=== PATIENT | female | born 1990 | race Caucasian/White ===

== ENCOUNTER 2016-11-05 08:24 | Inpatient (IN) | payer OTHER ==
[~2016-11-05] VITALS: Ht 157.5 cm; Wt 73.1 kg
[2016-11-05 08:38] VITALS: BP 118/75; PULSE 78; RESP 20; Ht 157.5 cm; Wt 73.1 kg
[2016-11-05] MEDS ORDERED: LACTATED RINGER'S 1,000 ML IV SCH (08:42)
[2016-11-05] MEDS ORDERED: PREN1TAB79 PO (08:42)
--- NOTE | 2016-11-05 08:59 | TRIAGE ---
OB Triage Datetime Report Generated by CPN: 11/05/2016 08:58 Datetime: 11/05/2016 08:55 Time of Arrival: 11/05/2016 08:20 EGA: 38.5 Arrived By: Ambulatory Arrived From: Home Chief Complaint: SROM AT 0700 UCS SINCE 0700 Movement: Present Contractions: Regular Contractions: Q 2-3 Patient Complaints: Contractions; Other Time Provider Notified: 11/05/2016 08:56 Provider Notified: DR PRIEST Initial Plan: EFM,CALL DR PRIEST Datetime: 11/05/2016 08:50 Maternal Assessment Level of Consciousness: Fully Conscious DTR's/Clonus: DTRs 2+; No Clonus Headache: Denies Blurred Vision: No Respiratory Effort: Unlabored; Regular Rhythm; Equal Expansion Breath Sounds, Left: Clear and Equal Breath Sounds, Right: Clear and Equal Nausea/Vomiting: Denies RUQ Epigastric Pain: Denies Facial Edema: None Temperature Route: Axillary Fall Risk Assessment History of Falling: (0) No Secondary Diagnosis: (0) No Ambulatory Aid: (0) Bedrest/Nurse Assist IV Therapy: (0) No Gait: (0) Normal/Bedrest/Immobile Mental Status: (0) Oriented to Own Ability Fall Score: 0 Fall Risk Score Definition: No Risk: No action required
[2016-11-05] MEDS ORDERED: OXYTOCIN 30 UNITS/LR 500 ML IV SCH ×6 (09:00→19:30)
[2016-11-05] MEDS ORDERED: BUTORPHANOL 2 MG INJ IV PRN ×2 (09:00→10:00)
[2016-11-05] MEDS ORDERED: CARBOPROST 250 MCG INJ IM PRN ×2 (09:00→10:00)
[2016-11-05] MEDS ORDERED: OXYTOCIN 30 UNITS/LR 500 ML IV PRN ×2 (09:00→10:00)
[2016-11-05] MEDS ORDERED: MISOPROSTOL 200 MCG TAB PR PRN ×2 (09:00→10:00)
[2016-11-05] MEDS ORDERED: IBUPROFEN 600 MG TAB PO PRN ×2 (09:00→10:00)
[2016-11-05] MEDS ORDERED: LIDOCAINE 1% (MPF) 30 ML INJ INJ PRN ×2 (09:00→10:00)
[2016-11-05] MEDS ORDERED: METHYLERGONOVINE 0.2 MG INJ IM PRN ×2 (09:00→10:00)
[2016-11-05] MEDS ORDERED: AMPICILLIN 2 GM/NS (PMX) 100 ML IV ONE (09:00)
--- NOTE | 2016-11-05 09:58 | RADRPT ---
PROCEDURE: US OB. CLINICAL INDICATION: Size and dates TECHNIQUE: Multiple sonographic images of the pelvis and gravid uterus were obtained. The images were reviewed on a PACS workstation. COMPARISON: No prior studies are available for comparison. FINDINGS: There is a single viable intrauterine gestation. Cardiac activity is present with 148 beats per min samara. There is a vertex presentation. The placenta is posterior. There is no evidence for an abruption or placenta previa. Measurements were made in order to determine age. The results are as follows: BPD =9.1 cm HC =33.6 cm AC =34.8 cm FL =7.2 cm Estimated gestational age of approximately 37 weeks and 5 days based on ultrasound measurements. Clinical age: 38 weeks and 5 days. The estimated date of delivery is 11/21/16, based on ultrasound measurements. The EFW = 3371 g, 49.2%, based on LMP age. RPTAT: AA IMPRESSION: Single viable intrauterine gestation of approximately 37 weeks and 5 days based on ultrasound measu rements. .Leeroy Parsons MD, Date Time Electronically viewed and signed by .Leeroy Parsons MD, on 11/05/2016 09:58 .S/
[2016-11-05] MEDS ORDERED: LACTATED RINGER'S 1,000 ML IV PRN ×2 (10:00)
[2016-11-05 10:01] LABS: ADD SCAN DIFF NO
[2016-11-05 10:20] LABS: INR 0.84; PROTIME 11.5 Sec (12.2-14.2); PT RATIO 0.9
[2016-11-05 10:21] LABS: PARTIAL THROMBOPLASTIN TIME 26.5 Sec (25.0-35.0)
[2016-11-05 10:23] LABS: BASOPHILS % 0.3 % (0.0-2.0); EOSINOPHILS # 0.1 10^3/ul (0.0-0.5); EOSINOPHILS % 0.6 % (0.0-7.0); HEMATOCRIT 38.8 % (37.0-47.0); HEMOGLOBIN 13.2 g/dl (12.0-16.0); LYMPHOCYTES # 1.6 10^3/ul (0.8-2.9); LYMPHOCYTES % 11.6 % (15.0-51.0); MEAN CORPUSCULAR HEMOGLOBIN 29.7 pg (29.0-33.0); MEAN CORPUSCULAR VOLUME 87.4 fl (82.0-101.0); MEAN PLATELET VOLUME 11.9 fl (7.4-10.4); MONOCYTE # 0.9 10^3/ul (0.3-0.9); MONOCYTES % 6.8 % (0.0-11.0); NEUTROPHIL # 10.7 10^3/ul (1.6-7.5); NEUTROPHILS % 79.5 % (39.0-77.0); PLATELET COUNT 195 10^3/UL (140-415); RED BLOOD COUNT 4.44 10^6/ul (4.20-5.40); RED CELL DISTRIBUTION WIDTH 13.2 % (11.5-14.5); WHITE BLOOD COUNT 13.5 10^3/ul (4.8-10.8)
[2016-11-05] MEDS ORDERED: LACTATED RINGER'S 1,000 ML IV ONE (10:36)
[2016-11-05] MEDS ORDERED: CITRIC ACID/NA CITRATE 30 ML CUP ONE ×2 (10:41→23:10)
[2016-11-05] MEDS ORDERED: ONDANSETRON 4 MG INJ ONE (10:41)
[2016-11-05] MEDS ORDERED: FENTAnyl 2MCG/ML-ROPIV 0.2% 100 ML ONE (10:43)
[2016-11-05] MEDS: LACTATED RINGER'S 1,000 ML IV SCH ×3 (10:48→19:11)
[2016-11-05] MEDS ORDERED: KETOROLAC 30 MG INJ IV PRN (11:00)
[2016-11-05] MEDS ORDERED: NALOXONE (0.4 MG/ML) INJ IV PRN (11:00)
[2016-11-05] MEDS ORDERED: ONDANSETRON 4 MG INJ IV PRN (11:00)
[2016-11-05] MEDS ORDERED: CITRIC ACID/NA CITRATE 30 ML CUP PO ONE (11:00)
[2016-11-05] MEDS ORDERED: DIPHENHYDRAMINE 50 MG INJ IV PRN (11:00)
[2016-11-05] MEDS ORDERED: PROCHLORPERAZINE 10 MG INJ IV PRN (11:00)
[2016-11-05] MEDS ORDERED: FENTAnyl 2MCG/ML-ROPIV 0.2% 100 ML BAG EPI SCH (11:00)
[2016-11-05] MEDS ORDERED: morphine 2 MG INJ IV PRN ×2 (11:00)
[2016-11-05] MEDS ORDERED: ONDANSETRON 4 MG INJ IV ONE (11:00)
[2016-11-05] MEDS ORDERED: AMPICILLIN 1 GM/NS (PMX) 50 ML IV SCH (13:00)
[2016-11-05] MEDS ORDERED: CEFAZOLIN 2 GM/50 ML (PMX) 50 ML IVPB ONE (17:00)
[2016-11-05] MEDS ORDERED: ACETAMINOPHEN 500 MG TAB PO STA (19:19)
--- NOTE | 2016-11-06 01:11 | HP ---
Date/Time of Note Date/Time of Note DATE: 11/06/16 TIME: 00:58 OB - History Hx of Present Free Text/Dictation Pre-operative H&P Pt is a 26yo G1 at 38+6 admitted on 11/05/16 in early labor. Pt progressed to c/+ 1 without augmentation. However when pt reached second stage of labor she had a fever and was treated for chorioamnionitis. tachycardia initially responded to intrauterine resuscitation, a dose of antibiotics and Tylenol. Pt pushed x3 hours with Pitocin augmentation, good pushing effort and poor descent. PROCEDURE: US OB. CLINICAL INDICATION: Size and dates TECHNIQUE: Multiple sonographic images of the pelvis and gravid uterus were obtained. The images were reviewed on a PACS workstation. COMPARISON: No prior studies are available for comparison. FINDINGS: There is a single viable intrauterine gestation. Cardiac activity is present with 148 beats per minute. There is a vertex presentation. The placenta is posterior. There is no evidence for an abruption or placenta previa. Measurements were made in order to determine age. The results are as follows: BPD = 9.1 cm HC = 33.6 cm AC = 34.8 cm FL = 7.2 cm Estimated gestational age of approximately 37 weeks and 5 days based on ultrasound measurements. Clinical age: 38 weeks and 5 days. The estimated date of delivery is 11/21/16, based on ultrasound measurements. The EFW = 3371 g, 49.2%, based on LMP age. RPTAT: AA IMPRESSION: Single viable intrauterine gestation of approximately 37 weeks and 5 days based on ultrasound measurements. Past Family/Social History * Past Medical, Surgical, Family and Obstetric Histories reviewed from chart. Blood Type: O+ Rubella: immune RPR/VDRL: Negative GBS Status: Negative HBsAG: Negative OB Admission Exam Vital Signs Vital Signs Vital Signs Date Time Temp Pulse Resp B/P Pulse Ox O2 Delivery O2 Flow Rate FiO2 11/05/16 08:38 97.8 78 20 118/75 Room Air FHT 170s, mod sharon, +accels, nonrepetitive variable decels, few late decels which resolved [place]: q2-3 min UCs on Pitocin Physical Exam Cervical Dilatation: 10cm Effacement: 100% Last 72 hours Lab Results CBC & BMP 11/05/16 09:55 OB Assessment/Plan Other Assessment: IUP at 38+6wks GA Arrest of Descent Other plan: Recommend section for delivery given prolonged tachycardia in the setting of poor descent of head. The risks of C/S were discussed with the pt through a theater set production designer and include but are not limited to pain, infection, damage to nearby organs, structures or injury to baby, bleeding possibly requiring transfusion of blood products and abnormal placentation in future pregnancies. Risks of transfusion including infection and transfusion reaction were discussed as well. Pt counseled on possibility of needing a repeat surgery to repair damage done at the time of C/S and not recognized. Written consent obtained for section and transfusion of blood products. RIKY LARA MD Nov 06, 2016 01:08
[2016-11-06] MEDS ORDERED: CHLOROPROCAINE 3% (MPF) 20 ML INJ ONE (01:14)
[2016-11-06] MEDS ORDERED: FENTAnyl 50 MCG/ML VIAL ONE (01:27)
[2016-11-06] MEDS ORDERED: morphine SULFATE/PF (10 MG/10 ML) INJ ONE (01:27)
[2016-11-06] MEDS ORDERED: BUPIVACAINE 0.25% (MPF) 30 ML INJ ONE (01:33)
[2016-11-06] MEDS ORDERED: METOCLOPRAMIDE 10 MG INJ ONE (01:40)
[2016-11-06] MEDS ORDERED: MEPERIDINE 100 MG INJ ONE (02:00)
[2016-11-06] MEDS ORDERED: NALOXONE (0.4 MG/ML) INJ IV PRN ×2 (03:00→13:30)
--- NOTE | 2016-11-06 03:04 | OPR ---
Operative Report Planned Procedure Procedure date Nov 06, 2016 Procedure(s) Primary Low Transverse Section via Pfannenstiel Incision Performed by: RIKY LARA MD Assisting provider: LILIBETH REYNOLDS M.D. Anesthesiologist: BRANDI MCCRAY MD Pre-procedure diagnosis 1) Intrauterine at 38+6wks GA 2) Arrest of Descent 3) Tachycardia Anesthesia Type: epidural Procedure Description Under satisfactory anesthesia, the patient was prepped and draped in the normal sterile fashion and placed in a supine position, tilted to the left. A Pfannenstiel incision was made with a scalpel and the incision was carried down through the underlying subcutaneous tissue sharply. Bleeders were controlled with electrocautery. The fascia was incised on both sides of the midline and extended laterally in a blunt fashion with blunt dissection off of the underlying rectus muscles. The rectus muscles were divided midline. The peritoneum was then exposed and entered bluntly. Exploration of abdomen revealed a gravid uterus and good visualization of the bladder. A transverse incision was made in the lower segment of the uterus using a scalpel. The uterus was entered bluntly and the incision was bluntly extended in a cephalad caudad fashion. The head was brought to the level of the hysterotomy and delivered with fundal pressure, followed by delivery of the shoulders and remainder of the body. Nasal oropharyngeal suction was performed. The cord was milked, doubly clamped and cut and the baby was taken to the baby warmer for immediate assessment by RT. Cord blood was obtained. The placenta was delivered manually intact. The uterine cavity was cleaned with two wet sponges. The uterus was closed in 2 layers using 0-Vicryl in continuous fashion first and secondly for an imbricating layer. The peritoneal cavity was irrigated with warm saline and hemostasis was noted. The uterus was returned to the abdomen. Sponge, needle and instrument count reported to be correct. The gutters were cleaned with moist sponges and the hysterotomy was again examined and noted to be hemostatic. Fibrillar was placed across the hysterotomy. The rectus muscles and fascia were examined and noted to be intact and hemostatic. The fascia was closed with 0-Vicryl. Sponge, needle and instrument count reported to be correct. The subcutaneous layer was irrigated and small bleeders rendered hemostatic with electrocautery. Reapproximation of the subcutaneous layer was achieved with 2-0 Plain gut suture. The skin was closed with 3-0 Monocryl on a Santos needle. Skin glue and a dressing was applied. Estimated blood loss 500mL. Urine bag contained 150mL of clear urine. Post-Procedure Post-procedure diagnosis 1) Intrauterine at 38+6wks GA 2) Arrest of Descent 3) 3) Tachycardia 4) Delivered Findings: Live female, Apgars 8 and 9, weight 3810g, OA position, cephalic presentation, three vessel cord. Specimen removed: Yes (Placenta, discarded) Complications None apparent Pt Condition post procedure: stable Disposition: other (LDR for recovery) Physician Certification I, the undersigned physician, hereby certify that I have discussed the procedure described in this consent form with this patient (or the patient's legal sales representative womens health), including: * The risk and benefits of the procedure; * Any adverse reactions that may reasonably be expected to occur; * Any alternative efficacious methods of treatment which may be medically viable ; * The potential problems that may occur during recuperation; * Potential for blood transfusion and associated risks/benefits; and * Any research or economic interest I may have regarding this treatment. I further certify that the patient/legally responsible person was encouraged to ask question and that all questions were answered. RIKY LARA MD Nov 06, 2016 03:02
[2016-11-06] MEDS ORDERED: OXYTOCIN 30 UNITS/LR 500 ML IV PRN (03:30)
[2016-11-06] MEDS ORDERED: CARBOPROST 250 MCG INJ IM PRN (03:30)
[2016-11-06] MEDS ORDERED: METHYLERGONOVINE 0.2 MG INJ IM PRN (03:30)
[2016-11-06] MEDS ORDERED: LANOLIN 7 GM TUBE TOP PRN (03:30)
[2016-11-06] MEDS ORDERED: MISOPROSTOL 200 MCG TAB PR PRN (03:30)
[2016-11-06] MEDS ORDERED: ACETAMINOPHEN/CODEINE #3 TAB PO PRN (03:30)
[2016-11-06] MEDS ORDERED: CEFAZOLIN 2 GM/50 ML (PMX) 50 ML IVPB ONE (04:30)
[2016-11-06 05:08] VITALS: BP 121/79; PULSE 97; RESP 20
[2016-11-06] MEDS ORDERED: IBUPROFEN 800 MG TAB PO SCH (06:00)
[2016-11-06 08:32] VITALS: BP 111/86; PULSE 81; RESP 20
[2016-11-06] MEDS: SENNA/DOCUSATE NA (8.6MG/50MG) TAB PO SCH ×2 (09:44→21:55)
[2016-11-06] MEDS: LACTATED RINGER'S 1,000 ML IV SCH ×3 (11:04→21:55)
[2016-11-06 11:59] VITALS: BP 127/63; PULSE 102; RESP 20
[2016-11-06] MEDS ORDERED: HYDROmorphONE 1 MG/ML SYG IV PRN ×2 (13:30)
[2016-11-06] MEDS ORDERED: ZOLPIDEM 5 MG TAB PO PRN (13:30)
[2016-11-06] MEDS ORDERED: DIPHENHYDRAMINE 50 MG INJ IV PRN (13:30)
[2016-11-06] MEDS: KETOROLAC 30 MG INJ IV PRN ×2 (13:30→19:11)
[2016-11-06] MEDS ORDERED: ONDANSETRON 4 MG INJ IV PRN (13:30)
[2016-11-06 14:57] LABS: ADD SCAN DIFF NO
[2016-11-06 14:58] LABS: BASOPHILS % 0.2 % (0.0-2.0); EOSINOPHILS % 0.1 % (0.0-7.0); HEMATOCRIT 33.1 % (37.0-47.0); HEMOGLOBIN 11.3 g/dl (12.0-16.0); LYMPHOCYTES # 0.9 10^3/ul (0.8-2.9); LYMPHOCYTES % 4.8 % (15.0-51.0); MEAN CORPUSCULAR HEMOGLOBIN 29.4 pg (29.0-33.0); MEAN CORPUSCULAR HGB CONC 34.1 g/dl (32.0-37.0); MEAN CORPUSCULAR VOLUME 86.2 fl (82.0-101.0); MEAN PLATELET VOLUME 11.4 fl (7.4-10.4); MONOCYTE # 0.9 10^3/ul (0.3-0.9); MONOCYTES % 4.8 % (0.0-11.0); NEUTROPHIL # 16.1 10^3/ul (1.6-7.5); NEUTROPHILS % 89.5 % (39.0-77.0); PLATELET COUNT 168 10^3/UL (140-415); RED BLOOD COUNT 3.84 10^6/ul (4.20-5.40); RED CELL DISTRIBUTION WIDTH 13.5 % (11.5-14.5)
[2016-11-06 18:00] VITALS: BP 125/76; PULSE 108; RESP 20
[2016-11-06 19:30] VITALS: BP 121/80; PULSE 100; RESP 18
[2016-11-07] VITALS: BP 119/76; RESP 18
[2016-11-07] MEDS: KETOROLAC 30 MG INJ IV PRN (01:00)
[2016-11-07 04:00] VITALS: BP 120/58; PULSE 100; RESP 18
[2016-11-07] MEDS: ACETAMINOPHEN/CODEINE #3 TAB PO PRN ×4 (04:55→18:12)
[2016-11-07 07:50] VITALS: BP 112/70; PULSE 97; RESP 20
[2016-11-07] MEDS ORDERED: INFLUENZA VIRUS VACCINE 0.5 ML (DISPENSING) IM* ONE (09:00)
[2016-11-07] MEDS: SENNA/DOCUSATE NA (8.6MG/50MG) TAB PO SCH ×2 (09:00→20:45)
--- NOTE | 2016-11-07 09:51 | PN ---
Date/Time of Note Date/Time of Note DATE: 11/07/16 TIME: 09:50 OB Subjective Subjective Subjective Post day 1 Afebrile, vital sign stable, abdomen soft bowel sounds present lochia moderate extremity normal ambulation recommended advanced diet as tolerated. Laboratory Tests Test 11/06/16 14:52 Basophils # 0.010^3/ul Basophils % 0.2% Eosinophils # 0.010^3/ul Eosinophils % 0.1% Hematocrit 33.1% Hemoglobin 11.3g/dl Lymphocytes # 0.910^3/ul Lymphocytes % 4.8% Mean Corpuscular Hemoglobin 29.4pg Mean Corpuscular Hemoglobin Concent 34.1g/dl Mean Corpuscular Volume 86.2fl Mean Platelet Volume 11.4fl Monocytes # 0.910^3/ul Monocytes % 4.8% Neutrophils # 16.110^3/ul Neutrophils % 89.5% Nucleated Red Blood Cells # 0.010^3/ul Nucleated Red Blood Cells % 0.0/100WBC Platelet Count 80041^3/UL Red Blood Count 3.8410^6/ul Red Cell Distribution Width 13.5% White Blood Count 18.010^3/ul Current Medications Medications (Trade) Dose Ordered Sig/Esvin Route PRN Reason Start Time Stop Time Status Last Admin Dose Admin Lactated Ringer's 1,000 ml @ 125 mls/hr Q8H IV 11/05/16 08:42 11/05/16 09:24 DC Ampicillin 100 ml @ 100 mls/hr ONCE ONCE IV 11/05/16 09:00 11/05/16 09:24 DC Ampicillin 50 ml @ 100 mls/hr Q4H IV 11/05/16 13:00 11/05/16 13:00 DC Oxytocin/Lactated Ringer's 500 ml @ 0 mls/hr TITRATE IV 11/05/16 09:00 11/05/16 09:24 DC Butorphanol Tartrate (Stadol) 2 mg Q2H PRN IV PAIN 11/05/16 09:00 11/05/16 09:24 DC Lidocaine 30 ml 30 ml ONCE PRN INJ EPISIOTOMY/TEARING 11/05/16 09:00 11/05/16 09:24 DC Oxytocin/Lactated Ringer's 500 ml @ 125 mls/hr ONCE -MAY REPEAT X1 IV 11/05/16 09:00 11/05/16 09:24 DC Oxytocin/Lactated Ringer's 500 ml @ 125 mls/hr ONCE IV 11/05/16 09:00 11/05/16 09:24 DC 11/06/16 03:59 Ibuprofen 600 mg 600 mg ONCE PRN PO Mild Pain (Pain Score 1-3) 11/05/16 09:00 11/05/16 09:25 DC Lactated Ringer's 1,000 ml @ 2,000 mls/hr Q30M PRN IV PRE-EPIDURAL BOLUS 11/05/16 10:00 11/05/16 10:00 DC Oxytocin/Lactated Ringer's 500 ml @ 0 mls/hr ONCE PRN IV For Hemorrhage Management 11/05/16 09:00 11/05/16 09:25 DC Methylergonovine Maleate (Methergine) 0.2 mg ONCE PRN IM VAGINAL BLEEDING 11/05/16 09:00 11/05/16 09:25 DC Carboprost Tromethamine (Hemabate) 250 mcg ONCE PRN IM VAGINAL BLEEDING 11/05/16 09:00 11/05/16 09:25 DC Misoprostol 1000 mcg 1,000 mcg ONCE PRN MS VAGINAL BLEEDING 11/05/16 09:00 11/05/16 09:25 DC Lactated Ringer's (Lr) 1,000 ml @ 125 mls/hr Q8H IV 11/05/16 09:43 11/06/16 03:09 DC 11/05/16 19:11 Butorphanol Tartrate (Stadol) 2 mg Q2H PRN IV PAIN 11/05/16 10:00 11/06/16 03:09 DC Lidocaine 30 ml 30 ml ONCE PRN INJ EPISIOTOMY/TEARING 11/05/16 10:00 11/06/16 03:09 DC Oxytocin/Lactated Ringer's 500 ml @ 125 mls/hr ONCE -MAY REPEAT X1 IV 11/05/16 10:00 11/06/16 03:10 DC Oxytocin/Lactated Ringer's 500 ml @ 125 mls/hr ONCE IV 11/05/16 10:00 11/06/16 03:10 DC Ibuprofen 600 mg 600 mg ONCE PRN PO Mild Pain (Pain Score 1-3) 11/05/16 10:00 11/06/16 03:09 DC Lactated Ringer's 1,000 ml @ 2,000 mls/hr Q30M PRN IV PRE-EPIDURAL BOLUS 11/05/16 10:00 11/06/16 03:09 DC 11/05/16 10:06 Oxytocin/Lactated Ringer's 500 ml @ 0 mls/hr ONCE PRN IV For Hemorrhage Management 11/05/16 10:00 11/06/16 03:10 DC Methylergonovine Maleate (Methergine) 0.2 mg ONCE PRN IM VAGINAL BLEEDING 11/05/16 10:00 11/06/16 03:10 DC Carboprost Tromethamine (Hemabate) 250 mcg ONCE PRN IM VAGINAL BLEEDING 11/05/16 10:00 11/06/16 03:10 DC Misoprostol 1000 mcg 1,000 mcg ONCE PRN MS VAGINAL BLEEDING 11/05/16 10:00 11/06/16 03:10 DC Lactated Ringer's (Lr) 1,000 ml @ 1,000 mls/hr Q1H ONCE IV 11/05/16 10:36 11/05/16 11:35 DC 11/06/16 00:49 Ondansetron HCl (Zofran Inj) 4 mg pre-procedure ONCE IV 11/05/16 11:00 11/05/16 11:01 DC 11/05/16 10:44 Citric Acid/ Sodium Citrate (Bicitra) 30 ml pre-procedure ONCE PO 11/05/16 11:00 11/05/16 11:01 DC 11/05/16 10:44 Naloxone HCl (Narcan) 0.1 mg Q2M PRN IV FOR RESP RATE 8 OR LESS 11/05/16 11:00 11/06/16 10:59 DC Ketorolac Tromethamine (Toradol) 30 mg Q6H PRN IV PAIN 11/05/16 11:00 11/06/16 10:59 DC 11/06/16 05:31 Morphine Sulfate (morphine) 2 mg Q3H PRN IV PAIN LEVEL 1-5 11/05/16 11:00 11/06/16 03:09 DC Morphine Sulfate (morphine) 4 mg Q3H PRN IV PAIN LEVEL 6-10 11/05/16 11:00 11/06/16 10:59 DC 11/06/16 02:47 Diphenhydramine HCl (Benadryl) 25 mg Q6H PRN IV ITCHING 11/05/16 11:00 11/06/16 10:59 DC Ondansetron HCl (Zofran Inj) 4 mg Q6H PRN IV NAUSEA AND/OR VOMITING 11/05/16 11:00 11/06/16 10:59 DC Prochlorperazine (Compazine Inj) 10 mg ONCE PRN IV NAUSEA AND/OR VOMITING 11/05/16 11:00 11/06/16 10:59 DC Fentanyl/ Ropivacaine 100 ml EPIDURAL INFUSION EPI 11/05/16 11:00 11/06/16 13:27 DC 11/05/16 18:54 Citric Acid/ Sodium Citrate (Bicitra) 30 ml STK-MED ONCE .ROUTE 11/05/16 10:41 11/05/16 10:42 DC Ondansetron HCl 4 mg 4 mg STK-MED ONCE .ROUTE 11/05/16 10:41 11/05/16 10:42 DC Fentanyl/ Ropivacaine 100 ml @ ud STK-MED ONCE .ROUTE 11/05/16 10:43 11/05/16 10:44 DC Cefazolin Sodium/ Dextrose (Ancef 2 Gm/50 ml (Pmx)) 50 ml @ 100 mls/hr ONCE ONCE IVPB 11/05/16 17:00 11/05/16 17:29 DC 11/05/16 17:14 Acetaminophen 1000 mg 1,000 mg ONCE STAT PO 11/05/16 19:19 11/05/16 19:22 DC 11/05/16 19:32 Oxytocin/Lactated Ringer's 500 ml @ 0 mls/hr Q0M IV 11/05/16 19:30 11/06/16 03:09 DC 11/05/16 19:46 Citric Acid/ Sodium Citrate (Bicitra) 30 ml STK-MED ONCE .ROUTE 11/05/16 23:10 11/05/16 23:11 DC Chloroprocaine HCl (Nesacaine 3% (Mpf)) 20 ml STK-MED ONCE .ROUTE 11/06/16 01:14 11/06/16 01:15 DC Fentanyl (Sublimaze) 100 mcg STK-MED ONCE .ROUTE 11/06/16 01:27 11/06/16 01:28 DC Morphine Sulfate (Duramorph) 10 mg STK-MED ONCE .ROUTE 11/06/16 01:27 11/06/16 01:28 DC Bupivacaine HCl (Marcaine 0.25% (Mpf) 30 ml) 30 ml STK-MED ONCE .ROUTE 11/06/16 01:33 11/06/16 01:34 DC Metoclopramide HCl (Reglan) 10 mg STK-MED ONCE .ROUTE 11/06/16 01:40 11/06/16 01:41 DC Meperidine HCl (Demerol) 100 mg STK-MED ONCE .ROUTE 11/06/16 02:00 11/06/16 02:01 DC Naloxone HCl (Narcan) 0.1 mg Q2M PRN IV FOR RESP RATE 8 OR LESS 11/06/16 03:00 11/07/16 02:59 DC Miscellaneous Information Duramorph: 4 mg Epidu... GIVEN XX 11/06/16 03:00 11/06/16 13:20 DC Lactated Ringer's (Lr) 1,000 ml @ 125 mls/hr Q8H IV 11/06/16 03:04 11/06/16 21:55 Acetaminophen/ Codeine Phosphate (Tylenol No.3) 1 tab Q4H PRN PO PAIN LEVEL 4-6 11/06/16 03:30 Acetaminophen/ Codeine Phosphate (Tylenol No.3) 2 tab Q4H PRN PO PAIN LEVEL 7-10 11/06/16 03:30 11/07/16 08:59 Ibuprofen (Motrin) 800 mg Q8 PO 11/06/16 06:00 11/06/16 13:17 DC Simethicone (Mylicon) 160 mg Q8H PRN PO DISTENSION/GAS/BLOATING 11/06/16 03:30 11/07/16 09:00 Senna/Docusate Sodium (Senokot-S) 1 tab BID PO 11/06/16 09:00 11/07/16 09:00 Lanolin 1 applic 1 applic BEDSIDE MEDICATION PRN TOP BEDSIDE FOR KT TO NIPPLES 11/06/16 03:30 Oxytocin/Lactated Ringer's 500 ml @ 0 mls/hr ONCE PRN IV For Hemorrhage Management 11/06/16 03:30 11/06/16 08:13 Methylergonovine Maleate (Methergine) 0.2 mg ONCE PRN IM VAGINAL BLEEDING 11/06/16 03:30 Carboprost Tromethamine (Hemabate) 250 mcg ONCE PRN IM VAGINAL BLEEDING 11/06/16 03:30 Misoprostol 1000 mcg 1,000 mcg ONCE PRN MS VAGINAL BLEEDING 11/06/16 03:30 Cefazolin Sodium/ Dextrose (Ancef 2 Gm/50 ml (Pmx)) 50 ml @ 100 mls/hr ONCE ONCE IVPB 11/06/16 04:30 11/06/16 04:59 DC Influenza Virus Vaccine (Fluzone) 0.5 ml ONCE ONCE IM* 11/07/16 09:00 11/07/16 09:01 DC Ibuprofen (Motrin) 800 mg Q8 PO 11/07/16 14:00 Naloxone HCl (Narcan) 0.1 mg Q2M PRN IV FOR RESP RATE 8 OR LESS 11/06/16 13:30 11/07/16 13:29 Ketorolac Tromethamine (Toradol) 30 mg Q6H PRN IV PAIN 11/06/16 13:30 11/07/16 13:29 11/07/16 01:00 Hydromorphone HCl (Dilaudid) 0.2 mg Q3H PRN IV PAIN LEVEL 1-5 11/06/16 13:30 11/07/16 13:29 Hydromorphone HCl (Dilaudid) 0.4 mg Q3H PRN IV PAIN LEVEL 6-10 11/06/16 13:30 11/07/16 13:29 Diphenhydramine HCl (Benadryl) 25 mg Q6H PRN IV ITCHING 11/06/16 13:30 11/07/16 13:29 Ondansetron HCl (Zofran Inj) 4 mg Q6H PRN IV NAUSEA AND/OR VOMITING 11/06/16 13:30 11/07/16 13:29 Zolpidem Tartrate (Ambien) 5 mg HS MAY REPEAT X 1 PRN PO INSOMNIA 11/06/16 13:30 11/07/16 13:29 Miscellaneous Information (* Miscellaneous Pharmacy Order) Duramorph: .3 mg Epidu... GIVEN XX 11/06/16 13:30 11/06/16 13:30 UMAIR PINO MD Nov 07, 2016 09:51
[2016-11-07 10:21] LABS: ADD SCAN DIFF NO
[2016-11-07 10:34] LABS: BASOPHIL # 0.1 10^3/ul (0.0-0.1); BASOPHILS % 0.3 % (0.0-2.0); EOSINOPHILS # 0.1 10^3/ul (0.0-0.5); EOSINOPHILS % 0.4 % (0.0-7.0); HEMATOCRIT 32.1 % (37.0-47.0); HEMOGLOBIN 10.8 g/dl (12.0-16.0); LYMPHOCYTES # 1.2 10^3/ul (0.8-2.9); LYMPHOCYTES % 6.6 % (15.0-51.0); MEAN CORPUSCULAR HEMOGLOBIN 29.4 pg (29.0-33.0); MEAN CORPUSCULAR HGB CONC 33.6 g/dl (32.0-37.0); MEAN CORPUSCULAR VOLUME 87.5 fl (82.0-101.0); MEAN PLATELET VOLUME 11.8 fl (7.4-10.4); MONOCYTE # 0.8 10^3/ul (0.3-0.9); MONOCYTES % 4.5 % (0.0-11.0); NEUTROPHIL # 16.4 10^3/ul (1.6-7.5); NEUTROPHILS % 87.3 % (39.0-77.0); PLATELET COUNT 188 10^3/UL (140-415); RED BLOOD COUNT 3.67 10^6/ul (4.20-5.40); RED CELL DISTRIBUTION WIDTH 13.9 % (11.5-14.5); WHITE BLOOD COUNT 18.7 10^3/ul (4.8-10.8)
[2016-11-07 11:10] VITALS: BP 124/69; PULSE 95; RESP 20
[2016-11-07] MEDS: IBUPROFEN 800 MG TAB PO SCH ×2 (13:45→22:17)
[2016-11-07] MEDS: CEFAZOLIN 2 GM/50 ML (PMX) 50 ML IVPB SCH ×2 (13:45→22:17)
[2016-11-07] MEDS: GENTAMICIN 80 MG/NS (PMX) 50 ML IVPB SCH ×2 (14:11→20:45)
[2016-11-07 14:45] LABS: ADD UMIC YES; URINE BILIRUBIN (Dip) NEGATIVE (NEGATIVE); URINE BLOOD (Dip) TRACE (NEGATIVE); URINE COLOR LT. YELLOW (YELLOW); URINE GLUCOSE (Dip) NEGATIVE (NEGATIVE); URINE KETONES (Dip) NEGATIVE (NEGATIVE); URINE LEUKOCYTE ESTERASE (Dip) NEGATIVE (NEGATIVE); URINE NITRITE (Dip) NEGATIVE (NEGATIVE); URINE TOTAL PROTEIN (Dip) NEGATIVE (NEGATIVE); URINE UROBILINOGEN (Dip) 0.2 E.U./dL (0.1-1.0)
[2016-11-07 15:00] LABS: BACTERIA,URINE FEW
[2016-11-07 16:51] VITALS: BP 119/65; PULSE 95; RESP 20
[2016-11-07 20:00] VITALS: BP 125/95; PULSE 103; RESP 19
[2016-11-08] MEDS: ACETAMINOPHEN/CODEINE #3 TAB PO PRN ×3 (00:08→22:51)
[2016-11-08 04:00] VITALS: BP 124/79; PULSE 88; RESP 19
[2016-11-08] MEDS: GENTAMICIN 80 MG/NS (PMX) 50 ML IVPB SCH ×3 (04:14→20:03)
[2016-11-08] MEDS: IBUPROFEN 800 MG TAB PO SCH ×3 (06:13→21:34)
[2016-11-08] MEDS: CEFAZOLIN 2 GM/50 ML (PMX) 50 ML IVPB SCH ×3 (06:13→21:35)
[2016-11-08 08:21] LABS: ADD SCAN DIFF NO
[2016-11-08 08:26] VITALS: BP 120/87; PULSE 87; RESP 16
[2016-11-08 08:30] LABS: BASOPHILS % 0.2 % (0.0-2.0); EOSINOPHILS # 0.2 10^3/ul (0.0-0.5); EOSINOPHILS % 1.2 % (0.0-7.0); LYMPHOCYTES # 1.5 10^3/ul (0.8-2.9); MEAN CORPUSCULAR HEMOGLOBIN 29.5 pg (29.0-33.0); MEAN CORPUSCULAR HGB CONC 33.3 g/dl (32.0-37.0); MEAN CORPUSCULAR VOLUME 88.5 fl (82.0-101.0); MEAN PLATELET VOLUME 11.2 fl (7.4-10.4); MONOCYTE # 0.7 10^3/ul (0.3-0.9); MONOCYTES % 4.8 % (0.0-11.0); NEUTROPHIL # 11.2 10^3/ul (1.6-7.5); NEUTROPHILS % 81.8 % (39.0-77.0); PLATELET COUNT 208 10^3/UL (140-415); RED BLOOD COUNT 3.73 10^6/ul (4.20-5.40); RED CELL DISTRIBUTION WIDTH 13.7 % (11.5-14.5); WHITE BLOOD COUNT 13.7 10^3/ul (4.8-10.8)
[2016-11-08 08:44] LABS: CREATININE 0.58 mg/dl (0.44-1.00)
[2016-11-08] MEDS: SENNA/DOCUSATE NA (8.6MG/50MG) TAB PO SCH ×2 (09:28→21:34)
--- NOTE | 2016-11-08 10:10 | PN ---
Date/Time of Note Date/Time of Note DATE: 11/08/16 TIME: 10:09 OB Subjective Subjective Subjective Post day 2 VS stable, afebrile, abdomen soft, bowel sounds present, no bowel movement, incision dry, stringently negative, enema recommended UMAIR PRIEST MD Nov 08, 2016 10:10
[2016-11-08] MEDS ORDERED: NA PHOSPHATE/BIPHOS 133 ML ENEMA PR ONE (10:30)
[2016-11-08 16:16] VITALS: BP 126/88; PULSE 97; RESP 18
[2016-11-08 20:00] VITALS: BP 118/77; PULSE 91; RESP 18
[2016-11-09 04:00] VITALS: BP 128/86; PULSE 100; RESP 18
[2016-11-09] MEDS: GENTAMICIN 80 MG/NS (PMX) 50 ML IVPB SCH ×2 (04:14→12:08)
[2016-11-09] MEDS: ACETAMINOPHEN/CODEINE #3 TAB PO PRN ×2 (04:41→12:25)
[2016-11-09] MEDS: IBUPROFEN 800 MG TAB PO SCH ×2 (06:14→15:09)
[2016-11-09] MEDS: CEFAZOLIN 2 GM/50 ML (PMX) 50 ML IVPB SCH ×2 (06:14→14:00)
[2016-11-09 08:00] VITALS: BP_SYST 101; BP_SYST 124; BP_DIAS 55; BP_DIAS 82; PULSE 78; PULSE 93; RESP 18
[2016-11-09] MEDS: SENNA/DOCUSATE NA (8.6MG/50MG) TAB PO SCH (09:00)
--- NOTE | 2016-11-09 12:20 | DS ---
Date/Time of Note Date/Time of Note DATE: 11/09/16 TIME: 12:15 Obstetrical Discharge Record Final Diagnosis Final Diagnosis: delivered Section Section: Primary Complications Other (Category 3 heart tracing failure to descend at second stage of labor) Augmentation: No Induction: No Rupture of Membranes: Yes Condition on Discharge Physical Assessment Last Vitals: Post day 3 Afebrile vital signs stable, abdomen soft, incision dry, healing well, bowel sounds present, patient had bowel movement, extremity normal, lochia normal, she is being discharged home with follow-up instruction to be seen at the clinic in 5 days to discontinue flora also patient received a prescription of analgesics for postoperative pain control. Voiding: Yes Bowel Movement: Yes Fundus: Firm Abdomen and Incision: Healing well, dry, free of inflammation Calf Tenderness: No Patient Condition: Good UMAIR PRIEST MD Nov 09, 2016 12:20
--- NOTE | 2016-11-09 12:56 | PD.PPDC ---
YARN COMBER Discharge Instruction Condition Patient Condition: Good Diet Diet: Resume Regular Diet Activity/Restrictions Activity: Normal Activity Restrictions: No Exercising Wound/Drain Care Instructions Wound/Drain Care Instructions: Remove Steri Strips in 1 week Follow-up Follow-up with Physician: 5, Day/Days Provider Information: Appointment clinic in 5 days to discontinue flora Return to clinic for [employer]ILDR[employer] AUTHOR Instructions: Fever greater than 101 Worsening abdominal pain Excessive Vaginal Bleeding More than 2 pads per hour Unable to tolerate diet OB Instructions: Breast Tenderness Blurried Vision Surgical Instructions: Incisional Drainage Incisional Redness UMAIR PRIEST MD Nov 09, 2016 12:56
[2016-11-09 16:00] VITALS: BP 130/84; PULSE 92; RESP 18
--- NOTE | 2016-11-09 21:32 | QN ---
Documentation Comment I was called prior to discharge the patient by RN to evaluate this young post op female. She has been discharged by Dr. Lal Patient reported some pain in the mons pubis area started after she took a shower today. She denies any other symptoms. She denies any drainage from the incision or any pain in the incision area as well as any fever or chills or any other symptoms She is deaf, her mother is interpreting Physical examination: GA: A& O, does not appear to be in acute distress Abdomen: Soft, appropriate tenderness in the section incision. No evidence of bleeding, erythema around the incision or drainage There is point tenderness on the mons pubis in the midline about 2 cm below the upper rim of symphysis pubis. There is no evidence of erythema , swelling or drainage in this area. Tenderness is in soft tissue. There is no evidence of cellulitis, induration. Likely symptoms related to ingrowing hair Patient was given strict precaution to contact MD office or return to the hospital if she has any erythema induration abnormal swelling or increased tenderness or pain in this area or any other concerns she has a follow-up appointment postop in her OB office in less than a week Mother who was american sign language interpreter and presented during examination and observation, verbalized understanding and interpreted to the patient as well LELO ANAND MD Nov 09, 2016 21:32
== END 2016-11-09 18:51 | disposition home or self-care (01) | DRG 765 ==
LOC: L-D 08:24 → OBT 08:24 → L-D 08:30 → PP1 11-06 05:23
PROVIDERS: ADMIT Obstetrics & Gynecology; ATTEND Obstetrics & Gynecology
PROC: 10D00Z1 Extraction of Products of Conception, Low, Open Approach (ICD-10-PCS; principal; 2016-11-06 01:45)
DX: O42.02 Full-term premature rupture of membranes, onset of labor within 24 hours of rupture (principal); O41.1230 Chorioamnionitis, third trimester, not applicable or unspecified; O62.1 Secondary uterine inertia; O76 Abnormality in fetal heart rate and rhythm complicating labor and delivery; Z3A.38 38 weeks gestation of pregnancy; Z37.0 Single live birth
CPT/HCPCS: 62319; 76815; 81001; 81003; 82565; 84520; 85025; 85610; 85730; 86592; 86900; 86901; 87086; 87340; 90686; 99464; J2400; G0463; J0690; J1580; J1885; J2175; J2270; J2274; J2405; J2590; J2765; J3010; J7120